=== PATIENT | female | born 1950 | race Caucasian/White ===

== ENCOUNTER → 2022-06-01 | Outpatient (CLI) | payer MEDICARE ==
--- NOTE | 2022-06-01 11:41 | XR ---
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 COMPARISON: None TECHNIQUE: 3 views the orbits frontal, lateral and Buck[place]. FINDINGS: Radiographic evaluation of the orbits fail to demonstrate evidence of an orbital fracture. There is n o radiopaque foreign body identified. The adjacent paranasal sinuses are well aerated an without evid ence of intra-cavitary fluid accumulation. IMPRESSION: No radiographic evidence of radiopaque foreign body.
--- NOTE | 2022-06-01 14:26 | MR ---
EXAMINATION TYPE: MR brain wo/w con DATE OF EXAM: 06/01/2022 COMPARISON: None HISTORY: Dementia. TECHNIQUE: Multiplanar, multisequence images of the brain and brainstem is performed without and with IV contras t, utilizing 4 mL intravenous Gadavist . FINDINGS: Diffusion weighted images demonstrate no evidence of a recent infarct or other diffusion ab normality. There is no extra-axial fluid collection. There is scattered high T2 signal seen througho ut the deep white matter and periventricular white matter. The ventricular system and cisternal spac es are normal in size and appearance. The brain volume is age appropriate. Midline structures demonstrate normal morphology. The craniocervical junction appears within normal limits. Post contrast images demonstrate no abnormal enhancement. The dural venous sinuses appear pa tent. There is mild mucosal thickening of the paranasal sinuses. Postsurgical changes to the left gilda be. The lenses are absent. Susceptibility artifact of the left maxilla secondary to dental fillings. IMPRESSION: 1. No evidence of intracranial mass or acute/subacute infarct or abnormal postcontrast enhancement. 2. Nonspecific white matter changes, likely secondary to small vessel ischemic disease.
== END | disposition home or self-care (01) ==
LOC: RADMRIMAIN 10:48
PROVIDERS: ATTEND Internal Medicine
DX: H26.9 Unspecified cataract (principal); H44.60 Unspecified retained (old) intraocular foreign body, magnetic; Z85.3 Personal history of malignant neoplasm of breast
CPT/HCPCS: 70030; 70553; A9585